=== PATIENT | female | born 1960 | race American Indian/Alaskan Native ===

== ENCOUNTER 2018-09-13 00:14 | Emergency (ER) | payer OTHER ==
[2018-09-13] MEDS ORDERED: TETRACAINE 0.5% OU ONE (02:16)
--- NOTE | 2018-09-13 02:34 | Emergency Department Report ---
Eye Injury/Foreign Body - HPI Duration: Today Eye Location: Left Severity: Moderate Eye Symptoms: Eye Pain: Yes, Blurred Vision: No, Eye Redness: No, Grinding/Hammering Metal: No, Contact Lens Use: No, Recalls Injury: No, Photophobia: No Other History: Pt is a 58 yo female who presents to the ED with left eyelid pain that began earlier today. She states she also has left eye pain. She feels like something is scratching her left eye from her eyelid. The patient states it is a sandpaper like feeling. She denies anything getting in the eye. She denies any contact use. The patient states she has washed the eye out and used eyedrops without much relief. ED Review of Systems ROS: Stated complaint: FOREIGN OBJECT IN LT EYE Other details as noted in HPI Comment: All other systems reviewed and negative ED Past Medical Hx - Past Medical History Previous Medical History?: Yes Hx Hypertension: Yes - Surgical History Past Surgical History?: Yes Additional Surgical History: CYST REMOVED FROM RIGHT MIDDLE FINGER - Social History Smoking Status: Never Smoker Substance Use Type: None - Medications Home Medications: Home Medications Medication Instructions Recorded Confirmed Last Taken Type Ibuprofen [Motrin 800 MG tab] 600 mg PO Q8HR PRN #20 tablet 03/12/15 Unknown Rx Bacitracin/Polymy B Opth Oint 1 applicatio OP BID #1 tube 09/13/18 Unknown Rx [Polysporin Opth Oint] Eye Injury Exam - Exam General: Vital signs noted. No distress. Alert and acting appropriately. - Visual Acuity Left Vision Acuity Degree: 20/70 Eye Exam: Both EOMI, Neither Injection, Neither Chemosis, Neither Abnormal Pupil, Neither Eye Foreign Body, Neither Mucous Discharge, Neither Purulent Discharge, Neither Fluorescein Uptake Exam: left meimobian glands appear blocked, small horedolum present, no fluroscein uptake with shaikh lamp, no corneal abrasion, no laceration, EOMI, vision intact Right Vision Acuity Degree: 20/40 Bilateral Vision Acuity Degree: 20/50 ED Course Vital Signs 09/13/18 00:29 Temperature 98 F Pulse Rate 75 Respiratory 18 Rate Blood Pressure 147/92 O2 Sat by Pulse 94 Oximetry ED Medical Decision Making - Medical Decision Making Pt presents with left eyelid pain and left eye pain. Use fluroscein stain and shaikh lamp no corneal abrasion, no laceration, no foreign body. Appears to have hordeolum and meimobian gland dysfunction. Will give pt antibiotic ointment. Advised pt to use artificial tears and warm compresses. Advised pt to see ophthamology in the next 2-3 days. Return to the ED for any new or worsening symptoms. - Differential Diagnosis Hordeolum, Chalazion, Corneal Abrasion, Meimobian gland dysfunction Critical care attestation.: If time is entered above; I have spent that time in minutes in the direct care of this critically ill patient, excluding procedure time. 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 Use medication as prescribed. Return to the emergency room for any new or worsening symptoms. Use warm compresses. Prescriptions: Bacitracin/Polymy B Opth Oint [Polysporin Opth Oint] 1 applicatio OP BID #1 tube [facility] RADHA [Primary Care Provider] - 2-3 Days BIRD SMITH MD [Staff Physician] - 2-3 Days Time of Disposition: 02:32 Print Language: SWISS
[2018-09-13 02:55] VITALS: BP 132/90
== END 2018-09-13 02:45 | disposition home or self-care (01) ==
LOC: ED 00:14
DX: H02.884 Meibomian gland dysfunction left upper eyelid (principal); H00.024 Hordeolum internum left upper eyelid; I10 Essential (primary) hypertension